=== PATIENT | female | born 1980 | race Caucasian/White ===

== ENCOUNTER 2018-10-19 21:24 | Emergency (ER) | payer OTHER ==
--- NOTE | 2018-10-19 21:33 | PDOC ---
Rapid Medical Evaluation Medical Evaluation: I have performed a brief in-person evaluation of this patient. The patient presents with a chief complaint of: c/o swelling of BLE from 3 days ago along with SOB; +smoker (6-7 cigs/day for 10 years); denies cardiac/ pulmonary history; denies recent travel, use of OCPs Pertinent physical exam findings: +BLE pitting edema, poor breath sounds (poor inspiratory effort), no obvious adventitious sounds I have ordered the following: Labs, EKG, CXR The patient will proceed to the ED for further evaluation. 10/19/18 21:28
[2018-10-19 21:34] VITALS: BP 147/73; PULSE 70; TEMP 98.6; BMI 19.8
[2018-10-19] MEDS ORDERED: SODIUM CHLORIDE 1,000 ML IV STA (23:06)
--- NOTE | 2018-10-19 23:06 | PDOC ---
History of Present Illness - General Chief Complaint: Shortness of Breath Stated Complaint: SOB/SWELLING Time Seen by Provider: 10/19/18 21:28 History Source: Patient Exam Limitations: No Limitations - History of Present Illness Initial Comments: 37 year old female with no PMH, nicotine user presented to ED for shortness of breath, lower extremity swelling and intermittent headache x3 days. Pt reported shortness of breath with exertion, but no chest pain. Pt admitted to OCP and nicotine use. Pt denied any medication usage, drug use. PT reported she has not experienced these symptoms prior. Allergies: NKDA ROS General: admitted to generalized weakness. denied fever, chills. HEENT: denied sore throat, rhinorrhea, ear pain. Cardiovascular: admitted to lower extremity swelling. denied chest pain, palpitations, syncope, diaphoresis. Respiratory: admitted to shortness of breath. denied cough, sputum production, hemoptysis. Gastrointestinal: denied abdominal pain, nausea, vomiting, diarrhea, constipation, blood in stool. Genitourinary: denied dysuria, increased urinary frequency, hematuria, urinary incontinence, flank pain. Back: denied back pain. Musculoskeletal: denied joint pain, muscle pain. Neurological: admitted to headache. denied dizziness, numbness, tingling, weakness. Integumentary: denied rash, laceration, abrasion. Hematologic/Lymphatic: denied bruising or bleeding. PE Constitutional: Well-nourished, Well-developed, appearing stated age. HEENT: head is normocephalic, atraumatic. EOMI. PERRLA. no posterior pharyngeal erythema.no tonsillar swelling or exudates bilaterally. uvula midline. no peritonsillar swelling, tenderness or abscess. no jaw tenderness or misalignment. Neck: supple. Full ROM. Cardiovascular: regular heart rhythm. no murmurs. no pericardial friction rub. Respiratory: RLL wheeze. left lung torres clear. no crackles. no stridor. no retractions. no belly breathing. speaking full sentences. Gastrointestinal: soft, nontender. normal bowel sounds. no rebound, guarding, masses. Extremities: peripheral pulses intact. 3+ pitting edema bilaterally. Neurological: CN 2-12 grossly intact. moves all four extremities. Psych: awake, alert, oriented x3. follows commands. answers questions appropriately. Past History - Past Medical History Allergies/Adverse Reactions: Allergies Allergy/AdvReac Type Severity Reaction Status Date / Time No Known Allergies Allergy Verified 10/19/18 21:34 Home Medications: Ambulatory Orders Albuterol 0.083% Nebulizer Claudia [Ventolin 0.083% Nebulizer Soln -] 1 neb NEB Q4H PRN #30 vial 10/20/18 Albuterol 0.083% Nebulizer Claudia [Ventolin 0.083% Nebulizer Soln -] 1 neb NEB Q4H PRN #30 vial 10/20/18 Albuterol Sulfate Inhaler - [Ventolin HFA Inhaler -] 1 - 2 inh PO Q4H PRN #1 inhaler 10/20/18 Methylprednisolone [Medrol Dose Christopher] 4 mg PO ASDIR #21 tablet 10/20/18 Nebulizer Accessories [Adult Aerosol Mask] 1 each MC QID PRN #1 each 10/20/18 Nebulizer [Compact Compressor Nebulizer] 1 each MC QID PRN #1 each 10/20/18 COPD: No Other medical history: nerve damage right leg - Suicide/Smoking/Psychosocial Hx Smoking History: Current every day smoker Number of Cigarettes Smoked Daily: 6 Information on smoking cessation initiated: No *Physical Exam - Vital Signs Last Vital Signs Temp Pulse Resp BP Pulse Ox 98.6 F 70 20 147/73 98 10/19/18 21:29 10/19/18 21:29 10/19/18 21:29 10/19/18 21:29 10/19/18 21:29 ED Treatment Course - LABORATORY CBC & Chemistry Diagram: 10/19/18 23:00 10/19/18 23:00 Medical Decision Making - Medical Decision Making 37 year old female with above PMH presented to ED for shortness of breath, lower extremity swelling and headache. Initial Vital Signs Temp Pulse Resp BP Pulse Ox 98.6 F 70 20 147/73 98 10/19/18 21:29 10/19/18 21:29 10/19/18 21:29 10/19/18 21:29 10/19/18 21:29 Afebrile. No tachycardia. No tachypnea. Mild hypertension. No hypoxia on room air. Labs ordered: CBC, CMP, troponin, BNP, coags, d-dimer Imaging ordered: CTA chest Medications ordered: normal saline bolus 1000 cc once EKG performed at CXR my view: no pulmonary vascular congestion. no infiltrate. -Pending official report 10/19/18 23:29 CBC WBC 4.5 K/mm3 (4.0-10.0) 10/19/18 23:00 RBC 3.43 M/mm3 (3.60-5.2) L 10/19/18 23:00 Hgb 10.4 GM/dL (10.7-15.3) L 10/19/18 23:00 Hct 31.8 % (32.4-45.2) L 10/19/18 23:00 MCV 92.8 fl (80-96) 10/19/18 23:00 MCH 30.3 pg (25.7-33.7) 10/19/18 23:00 MCHC 32.7 g/dl (32.0-36.0) 10/19/18 23:00 RDW 14.5 % (11.6-15.6) 10/19/18 23:00 Plt Count 179 K/MM3 (134-434) 10/19/18 23:00 MPV 8.4 fl (7.5-11.1) 10/19/18 23:00 Absolute Neuts (auto) 2.6 K/mm3 (1.5-8.0) 10/19/18 23:00 Neutrophils % 57.9 % (42.8-82.8) 10/19/18 23:00 Lymphocytes % 25.5 % (8-40) 10/19/18 23:00 Monocytes % 12.7 % (3.8-10.2) H 10/19/18 23:00 Eosinophils % 2.7 % (0-4.5) 10/19/18 23:00 Basophils % 1.2 % (0-2.0) 10/19/18 23:00 Nucleated RBC % 0 % (0-0) 10/19/18 23:00 No leukocytosis. Mild normocytic anemia. 10/20/18 00:21 CMP Sodium 144 mmol/L (136-145) 10/19/18 23:00 Potassium 4.0 mmol/L (3.5-5.1) 10/19/18 23:00 Chloride 106 mmol/L (98-107) 10/19/18 23:00 Carbon Dioxide 28 mmol/L (21-32) 10/19/18 23:00 Anion Gap 10 MMOL/L (8-16) 10/19/18 23:00 BUN 6.4 mg/dL (7-18) L 10/19/18 23:00 Creatinine 0.5 mg/dL (0.55-1.3) L 10/19/18 23:00 Est GFR (CKD-EPI)AfAm 141.30 10/19/18 23:00 Est GFR (CKD-EPI)NonAf 121.92 10/19/18 23:00 Random Glucose 67 mg/dL (74-106) L 10/19/18 23:00 Calcium 8.3 mg/dL (8.5-10.1) L 10/19/18 23:00 Total Bilirubin 0.2 mg/dL (0.2-1) 10/19/18 23:00 AST 21 U/L (15-37) 10/19/18 23:00 ALT 23 U/L (13-61) 10/19/18 23:00 Alkaline Phosphatase 82 U/L (45-117) 10/19/18 23:00 Troponin I < 0.02 ng/ml (0.00-0.05) 10/19/18 23:00 B-Natriuretic Peptide 500.3 pg/ml (5-125) H 10/19/18 23:00 Total Protein 6.4 g/dl (6.4-8.2) 10/19/18 23:00 Albumin 3.5 g/dl (3.4-5.0) 10/19/18 23:00 No electrolyte abnormalities. No BARTOLO. No transaminitis. Troponin undetectable. BNP elevated. Pending testing and CT. Dimer positive. Pt agreed with plan for CTA. 10/20/18 01:37 CT called, unable to take pt now. 10/20/18 02:05 Bilateral LE Duplex: negative for DVT. 10/20/18 06:19 Pt advised to be admitted for COPD exacerbation, new-onset CHF. Pt reported improvement of symptoms and she wanted to follow up outpatient. Pt given pulmonology referral, cardiology referral, return precautions. Prescriptions for albuterol inhaler, albuterol solution, nebulizer/mask, medrol dose pack. *DC/Admit/Observation/Transfer Diagnosis at time of Disposition: COPD (chronic obstructive pulmonary disease), Shortness of breath, Pedal edema - Discharge Dispostion Disposition: HOME Condition at time of disposition: Guarded Decision to Admit order: No - Prescriptions Prescriptions: Albuterol 0.083% Nebulizer Claudia [Ventolin 0.083% Nebulizer Soln -] 1 neb NEB Q4H PRN #30 vial PRN Reason: Asthma Albuterol 0.083% Nebulizer Claudia [Ventolin 0.083% Nebulizer Soln -] 1 neb NEB Q4H PRN #30 vial PRN Reason: Asthma Albuterol Sulfate Inhaler - [Ventolin HFA Inhaler -] 1 - 2 inh PO Q4H PRN #1 inhaler PRN Reason: dyspnea Methylprednisolone [Medrol Dose Christopher] 4 mg PO ASDIR #21 tablet Nebulizer [Compact Compressor Nebulizer] 1 each MC QID PRN #1 each PRN Reason: Asthma Nebulizer Accessories [Adult Aerosol Mask] 1 each MC QID PRN #1 each PRN Reason: Asthma - Referrals Referrals: Jason Johnson MD [Staff Physician] - Simon Gray MD [Staff Physician] - Josesito Dawkins MD [Non Staff, Medical] - - Patient Instructions Printed Discharge Instructions: DI for Chronic Obstructive Pulmonary Disease, DI for Shortness of Breath, Serious Ways to Stop Smoking, Tips to Help You Stop Smoking Additional Instructions: Follow up with your primary care doctor within 3 days. Your care is not complete until you follow up. Follow up with a medical practice manager within 5 days. Your care is not complete until you follow up. I have provided you with a referral. Follow up with a lpn rn within 5 days. Your care is not complete until you follow up. I have provided you with a referral. Return to the Emergency Department for chest pain, shortness of breath, lightheadedness, fever, vomiting or any other new, worsening or concerning symptoms. - Post Discharge Activity Forms/Work/School Notes: Back to Work
[2018-10-19 23:14] LABS: BASO % 1.2 % (0-2.0); EOS % 2.7 % (0-4.5); HEMATOCRIT 31.8 % (32.4-45.2); HEMOGLOBIN 10.4 GM/dL (10.7-15.3); LYMPH % 25.5 % (8-40); MCH 30.3 pg (25.7-33.7); MCHC 32.7 g/dl (32.0-36.0); MEAN CELL VOLUME 92.8 fl (80-96); MEAN PLT VOLUME 8.4 fl (7.5-11.1); MONO % 12.7 % (3.8-10.2); NEUT % 57.9 % (42.8-82.8); PLATELET COUNT 179 K/MM3 (134-434); RBC 3.43 M/mm3 (3.60-5.2); RDW 14.5 % (11.6-15.6); WHITE BLOOD COUNT 4.5 K/mm3 (4.0-10.0)
[2018-10-19 23:56] LABS: ALBUMIN 3.5 g/dl (3.4-5.0); BILIRUBIN,TOTAL 0.2 mg/dL (0.2-1); BLOOD UREA NITROGEN 6.4 mg/dL (7-18); CALCIUM 8.3 mg/dL (8.5-10.1); CREATININE 0.5 mg/dL (0.55-1.3); TOT PROT 6.4 g/dl (6.4-8.2)
[2018-10-20] MEDS ORDERED: DEXTROSE 50%-WATER - 25 GM/50 ML VIAL IVPUSH ONE (00:21)
--- NOTE | 2018-10-20 00:25 | PDOC ---
Attending Attestation - Resident Resident Name: TashaDiane - ED Attending Attestation I have performed the following: I have examined & evaluated the patient, The case was reviewed & discussed with the resident, I agree w/resident's findings & plan, Exceptions are as noted - HPI HPI: 10/20/18 00:23 37 yo female p/w new onset lower leg swelling since Friday and c/o exertional dypsnea head ncat neck no bruits lungs scant lower wheeze,no crackles cvs [id number] abd no rebound ext LE edema b/l but L > R skin warm and dry neuro axo3,ambulatory - Physicial Exam PE: 10/20/18 03:04 please see above physical exam - Medical Decision Making 10/20/18 00:26 37 yo female w LE edema and sob plan r/o PE,infiltrates cbc,comp,d dimer,pending social history of daily tobacco use 10/20/18 01:17 negative test there is greater than 900 D DIMER and a CTA of the chest ordered 10/20/18 01:18 10/20/18 02:35 duplex doppler is negative CTA chest pending pt is now wheezing and requires resp tx 10/20/18 02:42 pt s/o Kamilla
[2018-10-20] MEDS ORDERED: DEXTROSE 50%-WATER - 25 GM/50 ML VIAL ONE (01:06)
[2018-10-20] MEDS ORDERED: ALBUTEROL SO4 2.5/IPRATROPIUM 0.5 INH SOL 3 ML VIAL.NEB. NEB ONE ×2 (02:41→02:57)
[2018-10-20] MEDS ORDERED: methylPREDNISolone NA SUCC 125 MG/2 ML VIAL IVPUSH ONE (05:46)
[2018-10-20] MEDS ORDERED: methylPREDNISolone NA SUCC 125 MG/2 ML VIAL ONE (06:23)
--- NOTE | 2018-10-20 10:50 | EKG ---
Test Reason : Blood Pressure : / mmHG Vent. Rate : 060 BPM Atrial Rate : 060 BPM P-R Int : 148 ms QRS Dur : 090 ms QT Int : 460 ms P-R-T Axes : 066 073 066 degrees QTc Int : 460 ms NORMAL SINUS RHYTHM NORMAL ECG NO PREVIOUS ECGS AVAILABLE Confirmed by Brendan Mccain MD ([id number]) on 10/20/2018 10:50:08 AM Referred By: Confirmed By:Brendan Mccain MD
== END 2018-10-20 06:49 | disposition home or self-care (01) ==
LOC: JER 21:24
PROC: 3E0F7GC Introduction of Other Therapeutic Substance into Respiratory Tract, Via Natural or Artificial Opening (ICD-10-PCS; principal; 2018-10-19)
PROC: 3E0337Z Introduction of Electrolytic and Water Balance Substance into Peripheral Vein, Percutaneous Approach (ICD-10-PCS; 2018-10-19)
DX: J44.1 Chronic obstructive pulmonary disease with (acute) exacerbation (principal); I50.9 Heart failure, unspecified; F17.210 Nicotine dependence, cigarettes, uncomplicated
CPT/HCPCS: 36415; 71046-TC-FY; 71275-TC; 80053; 83880; 84484; 84703; 85025; 85379; 93005; 93010; 93970-TC; 94640; 96361; 96374; 99283-25; J7030

== ENCOUNTER 2023-10-29 15:49 | Inpatient (IN) | payer OTHER ==
[2023-10-29 17:22] LABS: BASO % 0.7 % (0-2.0); EOS % 1.5 % (0-4.5); HEMOGLOBIN 15.6 GM/dL (10.7-15.3); LYMPH % 12.9 % (8-40); MCH 30.3 pg (25.7-33.7); MCHC 31.3 g/dl (32.0-36.0); MEAN PLT VOLUME 8.9 fl (7.5-11.1); MONO % 8.3 % (3.8-10.2); NEUT % 76.6 % (42.8-82.8); PLATELET COUNT 186 10^3/uL (134-434); RBC 5.16 M/mm3 (3.60-5.2); RDW 15.9 % (11.6-15.6); WHITE BLOOD COUNT 7.3 K/mm3 (4.0-10.0)
[2023-10-29 17:27] LABS: INR 1.24 (0.83-1.09); PROTHROMBIN TIME (PATIENT) 14.2 SEC (9.7-13.0)
[2023-10-29 17:32] LABS: CHLORIDE 101 mmol/L (98-107); POTASSIUM 4.5 mmol/L (3.5-5.1); SODIUM 139 mmol/L (136-145)
[2023-10-29 17:34] LABS: CALCIUM 8.9 mg/dL (8.5-10.1)
[2023-10-29 17:35] LABS: ALBUMIN 2.7 g/dl (3.4-5.0); ANION GAP 1 mmol/L (4-13); BLOOD UREA NITROGEN 19.2 mg/dL (7-18); CO2 38 mmol/L (21-32); GLUCOSE,RANDOM 133 mg/dL (74-106)
[2023-10-29 17:38] LABS: CREATININE 0.4 mg/dL (0.55-1.3); SGOT/AST 27 U/L (15-37); SGPT/ALT 20 U/L (13-61)
[2023-10-29 17:39] LABS: BILIRUBIN,TOTAL 0.4 mg/dL (0.2-1)
[2023-10-29 17:41] LABS: ALK PHOS 149 U/L (45-117)
[2023-10-29 18:29] LABS: HIV INTERPRETATION NEGATIVE (NEGATIVE)
[2023-10-29 18:36] LABS: INR 1.27 (0.83-1.09); PROTHROMBIN TIME (PATIENT) 14.5 SEC (9.7-13.0)
[2023-10-29 18:39] LABS: ACTIVATED PTT 34.9 SECONDS (25.2-36.5)
[2023-10-29 20:26] LABS: VENOUS BASE EXCESS 6.7 mmol/L (-2-2); VENOUS O2 SATURATION 47.3 % (70-80); VENOUS PH 7.252 (7.310-7.410)
[2023-10-29 20:31] LABS: VENOUS PCO2 88.5 mmHg (38-52)
[2023-10-29 20:32] LABS: EPI CELLS 22 /uL (0-25.1); HYALINE CASTS 1 /uL (0-3.1); URINE APPEARANCE CLEAR; URINE BACTERIA 164 /uL (0-1359); URINE BILIRUBIN NEGATIVE (NEGATIVE); URINE COLOR YELLOW; URINE GLUCOSE (UA) NEGATIVE (NEGATIVE); URINE KETONE NEGATIVE (NEGATIVE); URINE LEUK ESTERASE NEGATIVE (NEGATIVE); URINE NITRITE NEGATIVE (NEGATIVE); URINE PROTEIN 1+ (NEGATIVE); URINE RBC 9 /uL (0-23.9); URINE WBC 2 /uL (0-25.8)
[2023-10-29 20:53] LABS: POTASSIUM 4.8 mmol/L (3.5-5.1)
[2023-10-29 20:54] LABS: BLOOD UREA NITROGEN 18.1 mg/dL (7-18); CALCIUM 8.4 mg/dL (8.5-10.1)
[2023-10-29 20:58] LABS: CREATININE 0.4 mg/dL (0.55-1.3)
[2023-10-29 21:25] LABS: URINE CRYSTALS NONE SEEN /hpf
[2023-10-29] MEDS ORDERED: methylPREDNISolone NA SUCC 125 MG/2 ML VIAL ONE (21:54)
[2023-10-29] MEDS ORDERED: ALBUTEROL SO4 2.5/IPRATROPIUM 0.5 INH SOL 3 ML VIAL.NEB. NEB ONE (21:54)
[2023-10-29] MEDS: ALBUTEROL SO4 2.5/IPRATROPIUM 0.5 INH SOL 3 ML VIAL.NEB. NEB SCH (21:59)
[2023-10-29] MEDS: methylPREDNISolone NA SUCC 125 MG/2 ML VIAL IVPUSH ONE (21:59)
[2023-10-30 07:28] LABS: BASO % 0.2 % (0-2.0); HEMATOCRIT 52.9 % (32.4-45.2); HEMOGLOBIN 16.2 GM/dL (10.7-15.3); LYMPH % 7.3 % (8-40); MCH 30.1 pg (25.7-33.7); MCHC 30.6 g/dl (32.0-36.0); MEAN CELL VOLUME 98.3 fl (80-96); MEAN PLT VOLUME 8.8 fl (7.5-11.1); MONO % 1.6 % (3.8-10.2); NEUT % 90.9 % (42.8-82.8); PLATELET COUNT 133 10^3/uL (134-434); RBC 5.38 M/mm3 (3.60-5.2); RDW 15.7 % (11.6-15.6)
[2023-10-30] MEDS ORDERED: FUROSEMIDE 40 MG/4 ML INJECTABLE VIAL ONE ×3 (07:31→19:48)
[2023-10-30 07:40] LABS: POTASSIUM 4.8 mmol/L (3.5-5.1)
[2023-10-30] MEDS: FUROSEMIDE 40 MG/4 ML INJECTABLE VIAL IVPUSH SCH (07:44)
[2023-10-30 07:47] LABS: ALBUMIN 2.4 g/dl (3.4-5.0); BLOOD UREA NITROGEN 19.4 mg/dL (7-18); CALCIUM 8.9 mg/dL (8.5-10.1); MAGNESIUM 1.5 mg/dL (1.8-2.4)
[2023-10-30 07:51] LABS: CREATININE 0.4 mg/dL (0.55-1.3); TOT PROT 5.5 g/dl (6.4-8.2)
[2023-10-30] MEDS ORDERED: ENOXAPARIN NA (PORCINE) 40 MG/0.4 ML DISP.SYRIN SQ ONE (10:24)
[2023-10-30] MEDS: ENOXAPARIN NA (PORCINE) 40 MG/0.4 ML DISP.SYRIN SQ SCH (10:31)
[2023-10-30] MEDS: MAGNESIUM SULF 50% (8.12 MEQ/2 ML-1 GM VIAL) IVPB ONE (17:00)
[2023-10-30] MEDS ORDERED: MAGNESIUM SULFATE IN WATER 2 GM/50 ML IVPB IVPB ONE (17:10)
[2023-10-30 21:13] LABS: URINE AMPHETAMINES NEGATIVE (NEGATIVE); URINE BARBITURATES NEGATIVE (NEGATIVE)
[2023-10-30 21:14] LABS: METHADONE, UR NEGATIVE (NEGATIVE); PHENCYCLIDINE,URINE NEGATIVE (NEGATIVE); URINE BENZODIAZEPINES NEGATIVE (NEGATIVE)
[2023-10-30 21:17] LABS: COCAINE, UR POSITIVE (NEGATIVE); OPIATES, URI POSITIVE (NEGATIVE)
[2023-10-31 03:56] VITALS: BMI 27.6
[2023-10-31 09:09] LABS: HEMATOCRIT 46.9 % (32.4-45.2); HEMOGLOBIN 14.8 GM/dL (10.7-15.3); MCH 30.3 pg (25.7-33.7); MCHC 31.7 g/dl (32.0-36.0); MEAN CELL VOLUME 95.7 fl (80-96); MEAN PLT VOLUME 9.1 fl (7.5-11.1); PLATELET COUNT 174 10^3/uL (134-434); RDW 15.4 % (11.6-15.6)
[2023-10-31 09:29] LABS: POTASSIUM 4.1 mmol/L (3.5-5.1)
[2023-10-31 09:35] LABS: ALBUMIN 2.6 g/dl (3.4-5.0); BLOOD UREA NITROGEN 19.1 mg/dL (7-18); CALCIUM 9.1 mg/dL (8.5-10.1)
[2023-10-31 09:38] LABS: CREATININE 0.6 mg/dL (0.55-1.3)
[2023-10-31 09:39] LABS: BILIRUBIN,TOTAL 0.9 mg/dL (0.2-1); TOT PROT 5.5 g/dl (6.4-8.2)
[2023-10-31] MEDS: CHLORHEXIDINE GLUCONATE 0.12% 15ML CUP MM SCH (14:22)
[2023-11-01] MEDS: FUROSEMIDE 40 MG TABLET (FP) PO SCH (09:27)
[2023-11-01 10:54] LABS: HEMATOCRIT 46.6 % (32.4-45.2); HEMOGLOBIN 14.7 GM/dL (10.7-15.3); MCH 30.6 pg (25.7-33.7); MCHC 31.6 g/dl (32.0-36.0); MEAN CELL VOLUME 96.7 fl (80-96); MEAN PLT VOLUME 8.7 fl (7.5-11.1); PLATELET COUNT 154 10^3/uL (134-434); RBC 4.82 M/mm3 (3.60-5.2); RDW 15.4 % (11.6-15.6); WHITE BLOOD COUNT 5.1 K/mm3 (4.0-10.0)
[2023-11-01 11:08] LABS: CHLORIDE 90 mmol/L (98-107); POTASSIUM 3.8 mmol/L (3.5-5.1); SODIUM 137 mmol/L (136-145)
[2023-11-01 11:10] LABS: ALBUMIN 2.6 g/dl (3.4-5.0); BLOOD UREA NITROGEN 12.7 mg/dL (7-18); CALCIUM 8.8 mg/dL (8.5-10.1); GLUCOSE,RANDOM 157 mg/dL (74-106)
[2023-11-01 11:13] LABS: SGOT/AST 23 U/L (15-37); SGPT/ALT 19 U/L (13-61)
[2023-11-01 11:14] LABS: CREATININE 0.7 mg/dL (0.55-1.3)
[2023-11-01 11:15] LABS: BILIRUBIN,TOTAL 0.6 mg/dL (0.2-1); TOT PROT 5.7 g/dl (6.4-8.2)
[2023-11-01 11:16] LABS: ALK PHOS 129 U/L (45-117)
[2023-11-01 11:21] LABS: ANION GAP 2 mmol/L (4-13); CO2 > 45 mmol/L (21-32)
[2023-11-01] MEDS: NICOTINE 21 MG/24 HOURS TOPICAL PATCH TD SCH (13:24)
[2023-11-01] MEDS: SIMETHICONE 80 MG TAB.CHEW (FP) PO PRN (16:17)
[2023-11-02 04:28] LABS: ARTERIAL BLD GAS O2 SATURATION 97.4 % (95-98); ARTERIAL BLOOD GAS PO2 109.9 mmHg (80-100); ARTERIAL BLOOD GAS pH 7.316 (7.350-7.450)
[2023-11-02] MEDS: FUROSEMIDE 40 MG TABLET (FP) PO SCH (05:11)
[2023-11-02 10:32] LABS: CHLORIDE 93 mmol/L (98-107); HEMATOCRIT 54.4 % (32.4-45.2); MCH 30.3 pg (25.7-33.7); MCHC 31.1 g/dl (32.0-36.0); MEAN CELL VOLUME 97.3 fl (80-96); MEAN PLT VOLUME 9.2 fl (7.5-11.1); PLATELET COUNT 164 10^3/uL (134-434); POTASSIUM 4.2 mmol/L (3.5-5.1); RBC 5.59 M/mm3 (3.60-5.2); RDW 15.4 % (11.6-15.6); SODIUM 140 mmol/L (136-145); WHITE BLOOD COUNT 5.6 K/mm3 (4.0-10.0)
[2023-11-02 10:38] LABS: ALBUMIN 2.9 g/dl (3.4-5.0); BLOOD UREA NITROGEN 11.8 mg/dL (7-18); CALCIUM 9.3 mg/dL (8.5-10.1); GLUCOSE,RANDOM 62 mg/dL (74-106); SGOT/AST 21 U/L (15-37); SGPT/ALT 19 U/L (13-61)
[2023-11-02 10:40] LABS: ANION GAP 2 mmol/L (4-13); BILIRUBIN,TOTAL 0.7 mg/dL (0.2-1); CO2 > 45 mmol/L (21-32); MAGNESIUM 1.8 mg/dL (1.8-2.4); TOT PROT 6.4 g/dl (6.4-8.2)
[2023-11-02 10:41] LABS: ALK PHOS 145 U/L (45-117); CREATININE 0.6 mg/dL (0.55-1.3)
[2023-11-02 10:42] LABS: PHOSPHOROUS 3.8 mg/dL (2.5-4.9)
[2023-11-02] MEDS: IBUPROFEN 400 MG TABLET (FP) PO ONE (14:05)
[2023-11-03 10:47] LABS: BASO % 0.9 % (0-2.0); EOS % 4.8 % (0-4.5); HEMATOCRIT 48.1 % (32.4-45.2); HEMOGLOBIN 15.2 GM/dL (10.7-15.3); LYMPH % 15.3 % (8-40); MCH 30.6 pg (25.7-33.7); MCHC 31.6 g/dl (32.0-36.0); MEAN CELL VOLUME 96.6 fl (80-96); MEAN PLT VOLUME 8.6 fl (7.5-11.1); MONO % 12.2 % (3.8-10.2); NEUT % 66.8 % (42.8-82.8); PLATELET COUNT 131 10^3/uL (134-434); RBC 4.97 M/mm3 (3.60-5.2); RDW 15.2 % (11.6-15.6)
[2023-11-03 11:40] LABS: POTASSIUM 4.1 mmol/L (3.5-5.1)
[2023-11-03 11:46] LABS: CALCIUM 9.2 mg/dL (8.5-10.1)
[2023-11-03 11:48] LABS: ALBUMIN 2.9 g/dl (3.4-5.0)
[2023-11-03 11:50] LABS: CREATININE 0.5 mg/dL (0.55-1.3)
[2023-11-03 11:51] LABS: BILIRUBIN,TOTAL 0.7 mg/dL (0.2-1); TOT PROT 6.4 g/dl (6.4-8.2)
[2023-11-04 15:33] VITALS: BP 121/77; PULSE 88; RESP 18; TEMP 98.6
[2023-11-05 03:10] LABS: ANTI-DNAse B 154 U/mL (0-120)
[2023-11-06 14:10] LABS: C-ANCA <1:20 titer (Neg:<1:20)
== END 2023-11-04 15:41 | disposition home or self-care (01) | DRG 194 ==
LOC: JER 15:49 → JERBED 21:00 → OBSVTOIN 10-30 00:53 → J6S 10-31 00:22
PROVIDERS: ADMIT Internal Medicine; ATTEND Internal Medicine
DX: I50.811 Acute right heart failure (principal); J96.02 Acute respiratory failure with hypercapnia; E87.4 Mixed disorder of acid-base balance; F12.90 Cannabis use, unspecified, uncomplicated; F17.210 Nicotine dependence, cigarettes, uncomplicated; R60.1 Generalized edema
CPT/HCPCS: 36415; 36600; 71045-TC-FY; 71250-TC; 71275-TC; 74177-TC; 76705-TC; 80048; 80053; 80307; 81003; 82533; 82668; 82803; 83520; 83735; 83880; 84100; 84443; 84702; 85025; 85027; 85610; 85730; 86038; 86215; 86235; 86256; 86431; 86705; 86708; 86803; 87340; 87389; 87517; 93005; 93010; 93306-TC; 93970-TC; 94761; 99285-25; G0378; Q9967

== ENCOUNTER 2024-05-16 21:08 | Inpatient (IN) | payer OTHER ==
[2024-05-16] MEDS ORDERED: ALBUTEROL SO4 2.5/IPRATROPIUM 0.5 INH SOL 3 ML VIAL.NEB. NEB ONE ×2 (21:55→22:45)
[2024-05-16 22:29] LABS: VENOUS BASE EXCESS 19.1 mmol/L (-2-2); VENOUS O2 SATURATION 91.1 % (70-80); VENOUS PH 7.276 (7.310-7.410)
[2024-05-16] MEDS: ALBUTEROL SO4 2.5/IPRATROPIUM 0.5 INH SOL 3 ML VIAL.NEB. NEB SCH (22:30)
[2024-05-16] MEDS ORDERED: methylPREDNISolone NA SUCC 125 MG/2 ML VIAL ONE (22:31)
[2024-05-16 22:33] LABS: HEMATOCRIT 52.1 % (34.1-44.9); MCHC 28.8 g/dl (32.2-35.5); PLATELET COUNT 112 x10^3/uL (182-369); RDW 13.9 % (12.2-17.1)
[2024-05-16] MEDS ORDERED: FUROSEMIDE 40 MG/4 ML INJECTABLE VIAL ONE (22:34)
[2024-05-16 22:37] LABS: INR 1.4 (0.83-1.09); PROTHROMBIN TIME (PATIENT) 15.3 SEC (9.7-13.0)
[2024-05-16 22:40] LABS: ACTIVATED PTT 31.5 SECONDS (25.2-36.5)
[2024-05-16] MEDS: FUROSEMIDE 40 MG/4 ML INJECTABLE VIAL IVPUSH ONE (22:43)
[2024-05-16] MEDS: methylPREDNISolone NA SUCC 125 MG/2 ML VIAL IVPUSH ONE (22:43)
[2024-05-16 22:59] LABS: POTASSIUM 4.1 mmol/L (3.5-5.1)
[2024-05-16 23:00] LABS: CALCIUM 9.1 mg/dL (8.5-10.1)
[2024-05-16 23:01] LABS: ALBUMIN 2.8 g/dl (3.4-5.0); BLOOD UREA NITROGEN 13.2 mg/dL (7-18)
[2024-05-16 23:04] LABS: CREATININE 0.3 mg/dL (0.55-1.3)
[2024-05-16 23:06] LABS: BILIRUBIN,TOTAL 0.7 mg/dL (0.2-1); TOT PROT 6.3 g/dl (6.4-8.2)
[2024-05-16] MEDS ORDERED: MAGNESIUM SULFATE IN WATER 2 GM/50 ML IVPB IVPB ONE (23:31)
[2024-05-16] MEDS: MAGNESIUM SULFATE IN WATER 2 GM/50 ML IVPB IVPB ONE (23:40)
[2024-05-16 23:51] LABS: ARTERIAL BLD GAS O2 SATURATION 97.3 % (95-98); ARTERIAL BLOOD GAS BASE EXCESS 12.1 mmol/L (-2-2); ARTERIAL BLOOD GAS PO2 110.1 mmHg (80-100)
[2024-05-16 23:52] LABS: ALLENS TEST POSITIVE; VENT MODE ST; VENT RATE 18
[2024-05-17] MEDS ORDERED: CEFTRIAXONE 1 G/50 ML PREMIX 50 ML IVPB ONE (01:38)
[2024-05-17] MEDS ORDERED: AZITHROMYCIN IVPB 500 MG/250 ML BAG IVPB ONE (02:17)
[2024-05-17] MEDS: AZITHROMYCIN IVPB 500 MG in DEXTROSE 5%-WATER - 250 ML IVPB ONE (02:32)
[2024-05-17] MEDS: methylPREDNISolone NA SUCC 40 MG/1 ML VIAL IVPUSH SCH (02:32)
[2024-05-17 05:54] LABS: ALLENS TEST POSITIVE; ARTERIAL BLD GAS O2 SATURATION 94.3 % (95-98); ARTERIAL BLOOD GAS BASE EXCESS 18.7 mmol/L (-2-2); ARTERIAL BLOOD GAS PO2 70.9 mmHg (80-100); ARTERIAL BLOOD GAS pH 7.454 (7.350-7.450)
[2024-05-17] MEDS: CEFTRIAXONE 1 G/50 ML PREMIX 50 ML IVPB SCH (09:06)
[2024-05-17] MEDS: FUROSEMIDE 40 MG/4 ML INJECTABLE VIAL IVPUSH SCH ×2 (09:06→16:09)
[2024-05-17] MEDS: ONDANSETRON 4 MG/2 ML VIAL IVPUSH ONE (09:07)
[2024-05-17] MEDS: ALBUTEROL SO4 2.5/IPRATROPIUM 0.5 INH SOL 3 ML VIAL.NEB. NEB SCH (09:53)
[2024-05-17] MEDS: AZITHROMYCIN IVPB 250 MG in DEXTROSE 5%-WATER - 250 ML IVPB SCH (11:10)
[2024-05-17] MEDS: ACETAMINOPHEN 325 MG TABLET (FP) PO ONE (13:37)
[2024-05-17] MEDS ORDERED: FUROSEMIDE 40 MG/4 ML INJECTABLE VIAL IVPUSH ONE (14:00)
[2024-05-17] MEDS: DOXYCYCLINE INJECTION 100 MG in DEXTROSE 5%-WATER 100 ML IVPB SCH (16:09)
[2024-05-17] MEDS: ONDANSETRON 4 MG TABLET PO PRN (16:10)
[2024-05-17 17:30] LABS: HEMATOCRIT 53.5 % (34.1-44.9); HEMOGLOBIN 16.1 g/dL (11.2-15.7); MCHC 30.1 g/dl (32.2-35.5); MEAN PLT VOLUME 11.1 fl (9.4-12.3); PLATELET COUNT 120 x10^3/uL (182-369); RDW 13.5 % (12.2-17.1)
[2024-05-17 17:49] LABS: POTASSIUM 3.8 mmol/L (3.5-5.1)
[2024-05-17 17:50] LABS: BLOOD UREA NITROGEN 11.6 mg/dL (7-18); CALCIUM 9.9 mg/dL (8.5-10.1); MAGNESIUM 1.7 mg/dL (1.8-2.4)
[2024-05-17 17:54] LABS: CREATININE 0.4 mg/dL (0.55-1.3)
[2024-05-17] MEDS: MAGNESIUM 1GM/D5W - 1 GM/100 ML IVPB IVPB ONE (20:34)
[2024-05-17] MEDS: FUROSEMIDE 40 MG/4 ML INJECTABLE VIAL IVPUSH ONE (21:31)
[2024-05-18] MEDS ORDERED: AZITHROMYCIN IVPB 250 MG in DEXTROSE 5%-WATER - 250 ML IVPB SCH (04:00)
[2024-05-18] MEDS ORDERED: MAGNESIUM SULF 50% (8.12 MEQ/2 ML-1 GM VIAL) IVPB ONE (07:26)
[2024-05-18 07:33] LABS: HEMATOCRIT 50.9 % (34.1-44.9); HEMOGLOBIN 15.5 g/dL (11.2-15.7); MCHC 30.5 g/dl (32.2-35.5); MEAN PLT VOLUME 11.5 fl (9.4-12.3); PLATELET COUNT 154 x10^3/uL (182-369); RDW 13.5 % (12.2-17.1)
[2024-05-18 07:56] LABS: CHLORIDE 85 mmol/L (98-107); POTASSIUM 3.2 mmol/L (3.5-5.1); SODIUM 137 mmol/L (136-145)
[2024-05-18 08:10] LABS: GLUCOSE,RANDOM 121 mg/dL (74-106)
[2024-05-18 08:11] LABS: ALBUMIN 2.9 g/dl (3.4-5.0)
[2024-05-18 08:12] LABS: ALK PHOS 142 U/L (45-117); BLOOD UREA NITROGEN 12.7 mg/dL (7-18); CALCIUM 9.6 mg/dL (8.5-10.1); CREATININE 0.5 mg/dL (0.55-1.3); SGOT/AST 26 U/L (15-37); SGPT/ALT 18 U/L (13-61); TOT PROT 6.3 g/dl (6.4-8.2)
[2024-05-18 08:22] LABS: N-TERMINAL BNP 4429.6 pg/ml (5-125)
[2024-05-18 08:55] LABS: ANION GAP 7 mmol/L (4-13); CO2 > 45 mmol/L (21-32)
[2024-05-18] MEDS ORDERED: ENOXAPARIN NA (PORCINE) 40 MG/0.4 ML DISP.SYRIN SQ SCH (10:00)
[2024-05-18] MEDS: POTASSIUM CHLORIDE ORAL LIQUID 20 MEQ/15 ML PO ONE (11:09)
[2024-05-18] MEDS: NICOTINE 14 MG/24 HOURS TOPICAL PATCH TD SCH (11:10)
[2024-05-18 15:33] LABS: METHADONE, UR NEGATIVE (NEGATIVE); URINE AMPHETAMINES NEGATIVE (NEGATIVE); URINE BENZODIAZEPINES NEGATIVE (NEGATIVE)
[2024-05-18 15:34] LABS: COCAINE, UR POSITIVE (NEGATIVE); OPIATES, URI NEGATIVE (NEGATIVE); PHENCYCLIDINE,URINE NEGATIVE (NEGATIVE); URINE BARBITURATES NEGATIVE (NEGATIVE)
[2024-05-18] MEDS: LORazepam 2 MG/ML SDV VIAL IVPUSH ONE (18:38)
[2024-05-18] MEDS: HEPARIN NA (PORCINE) 5,000 UNITS/ML 1ML VIAL SQ SCH (21:36)
[2024-05-18] MEDS ORDERED: LORazepam 1 MG TABLET PO PRN (23:59)
[2024-05-19 07:20] LABS: INR 1.54 (0.83-1.09); PROTHROMBIN TIME (PATIENT) 16.8 SEC (9.7-13.0)
[2024-05-19 07:31] LABS: POTASSIUM 3.8 mmol/L (3.5-5.1)
[2024-05-19 07:34] LABS: ALBUMIN 2.9 g/dl (3.4-5.0); BLOOD UREA NITROGEN 21.2 mg/dL (7-18); CALCIUM 9.6 mg/dL (8.5-10.1)
[2024-05-19 07:37] LABS: CREATININE 0.5 mg/dL (0.55-1.3)
[2024-05-19 07:39] LABS: BILIRUBIN,TOTAL 0.8 mg/dL (0.2-1); TOT PROT 6.1 g/dl (6.4-8.2)
[2024-05-19 07:43] LABS: HEMATOCRIT 45.7 % (34.1-44.9); HEMOGLOBIN 14.2 g/dL (11.2-15.7); MCHC 31.1 g/dl (32.2-35.5); MEAN CELL VOLUME 97.6 fl (79.4-94.8); MEAN PLT VOLUME 11.6 fl (9.4-12.3); PLATELET COUNT 128 x10^3/uL (182-369); RDW 13.7 % (12.2-17.1)
[2024-05-19] MEDS: methylPREDNISolone NA SUCC 40 MG/1 ML VIAL IVPUSH SCH (22:20)
[2024-05-20] MEDS: MELATONIN 5 MG TABLETS PO PRN (00:56)
[2024-05-20 07:54] LABS: HEMATOCRIT 44.7 % (34.1-44.9); HEMOGLOBIN 13.8 g/dL (11.2-15.7); MCHC 30.9 g/dl (32.2-35.5); MEAN CELL VOLUME 97.6 fl (79.4-94.8); MEAN PLT VOLUME 11.8 fl (9.4-12.3); PLATELET COUNT 100 x10^3/uL (182-369); RDW 13.6 % (12.2-17.1)
[2024-05-20 08:08] LABS: CHLORIDE 88 mmol/L (98-107); POTASSIUM 3.5 mmol/L (3.5-5.1); SODIUM 136 mmol/L (136-145)
[2024-05-20 08:11] LABS: BLOOD UREA NITROGEN 24.2 mg/dL (7-18); CALCIUM 9.5 mg/dL (8.5-10.1)
[2024-05-20 08:12] LABS: GLUCOSE,RANDOM 117 mg/dL (74-106)
[2024-05-20 08:13] LABS: MAGNESIUM 1.6 mg/dL (1.8-2.4)
[2024-05-20 08:15] LABS: ANION GAP 3 mmol/L (4-13); CO2 > 45 mmol/L (21-32); CREATININE 0.5 mg/dL (0.55-1.3)
[2024-05-20] MEDS: TORSEMIDE 20 MG TABLET (FP) PO SCH (09:12)
[2024-05-20] MEDS ORDERED: FUROSEMIDE 40 MG/4 ML INJECTABLE VIAL IVPUSH SCH (10:00)
[2024-05-20] MEDS: POTASSIUM CHLORIDE ORAL LIQUID 20 MEQ/15 ML PO ONE (10:14)
[2024-05-20] MEDS: MAGNESIUM 2GM/50ML STERILE WATER IVPB IVPB ONE (10:14)
[2024-05-20 10:47] VITALS: BMI 20.9
[2024-05-20 15:29] LABS: BODY FLUID MESOTHELIAL 2 %; BODY FLUID MONOCYTE 40 %
[2024-05-21 08:43] LABS: HEMATOCRIT 48.8 % (34.1-44.9); HEMOGLOBIN 14.2 g/dL (11.2-15.7); MCHC 29.1 g/dl (32.2-35.5); MEAN CELL VOLUME 101.5 fl (79.4-94.8); MEAN PLT VOLUME 11.5 fl (9.4-12.3); PLATELET COUNT 108 x10^3/uL (182-369); RDW 13.5 % (12.2-17.1)
[2024-05-21 08:57] LABS: CHLORIDE 86 mmol/L (98-107); POTASSIUM 3.4 mmol/L (3.5-5.1); SODIUM 137 mmol/L (136-145)
[2024-05-21 09:00] LABS: CALCIUM 9.7 mg/dL (8.5-10.1)
[2024-05-21 09:01] LABS: BLOOD UREA NITROGEN 29.5 mg/dL (7-18)
[2024-05-21 09:02] LABS: CREATININE 0.5 mg/dL (0.55-1.3); GLUCOSE,RANDOM 98 mg/dL (74-106)
[2024-05-21 09:03] LABS: ANION GAP 6 mmol/L (4-13); CO2 > 45 mmol/L (21-32)
[2024-05-21 09:24] VITALS: TEMP 98.4
[2024-05-21] MEDS: predniSONE 20 MG TABLET (UD) PO SCH (09:24)
[2024-05-21 14:07] LABS: BODY FLUID ALBUMIN 1.8 g/dL (Not Estab.)
[2024-05-21 15:52] VITALS: BP 130/93; PULSE 84; RESP 17
== END 2024-05-21 15:48 | disposition home or self-care (01) | DRG 952 ==
LOC: JER 21:08 → JERBED 05-17 01:26 → J4W 05-17 05:05
PROVIDERS: ADMIT Hospitalist; ATTEND Student in an Organized Health Care Education/Training Program
PROC: 0W9G3ZX Drainage of Peritoneal Cavity, Percutaneous Approach, Diagnostic (ICD-10-PCS; principal; 2024-05-18)
PROC: 0W9G3ZX Drainage of Peritoneal Cavity, Percutaneous Approach, Diagnostic (ICD-10-PCS; 2024-05-20)
DX: J44.1 Chronic obstructive pulmonary disease with (acute) exacerbation (principal); I50.33 Acute on chronic diastolic (congestive) heart failure; D75.1 Secondary polycythemia; D69.6 Thrombocytopenia, unspecified; E83.42 Hypomagnesemia; J96.21 Acute and chronic respiratory failure with hypoxia; J96.22 Acute and chronic respiratory failure with hypercapnia; R18.8 Other ascites; R16.0 Hepatomegaly, not elsewhere classified; I27.20 Pulmonary hypertension, unspecified; K76.6 Portal hypertension; E87.20 Acidosis, unspecified; F17.210 Nicotine dependence, cigarettes, uncomplicated; F10.939 Alcohol use, unspecified with withdrawal, unspecified; F12.90 Cannabis use, unspecified, uncomplicated; F17.200 Nicotine dependence, unspecified, uncomplicated
CPT/HCPCS: 0241U-QW; 36415; 36600; 71045-TC-FY; 71250-TC; 74178-TC; 76700-TC; 76942-TC; 80048; 80053; 80307; 82042; 82140; 82150; 82465; 82668; 82803; 82945; 83615; 83735; 83880; 83986; 84157; 84443; 84478; 84484; 85025; 85027; 85610; 85730; 86140; 86682; 87070; 87075; 87102; 87116; 87205; 87206; 87210; 88108; 88305-TC; 93005; 93010; 93306-TC; 94640; 94660; 94761; 97116-GP; 97162-GP; 99291; J1644; Q9967